=== PATIENT | female | born 1975 | race African-American/Black ===

== ENCOUNTER 2018-11-04 10:03 | Emergency (ER) | payer MEDICAID ==
[~2018-11-04] VITALS: Ht 162.6 cm; Wt 52.6 kg
--- NOTE | 2018-11-04 10:35 | NUR ---
Patient discharged to home in stable conditon. Written and verbal after care instructions given. Patient verbalizes understanding of instructions.
== END 2018-11-04 10:40 | disposition home or self-care (01) ==
LOC: ER 10:03
DX: L03.011 Cellulitis of right finger (principal)
CPT/HCPCS: A4663

== ENCOUNTER 2018-11-08 21:21 | Emergency (ER) | payer MEDICAID ==
[~2018-11-08] VITALS: Ht 162.6 cm; Wt 52.6 kg
[2018-11-08] MEDS ORDERED: SULFAMETHOXAZOLE-TMP DS TABLET (21:33)
[2018-11-08] MEDS ORDERED: CEPHALEXIN 500 MG CAPSULE (21:33)
--- NOTE | 2018-11-08 21:39 | NUR ---
Patient ambulated in ER with stable gait. Patient presents to ER with left index finger swelling. Patient states that she was here last Sunday and notices that the finger is much more swollen compared to the last time she was seen in ER. Patient states she has been taking prescribed ABX.
[2018-11-08] MEDS ORDERED: LIDOCAINE HCL 2% 20 ML VIAL TP ONE (21:45)
[2018-11-08] MEDS ORDERED: SODIUM BICARBONATE 4.2 % (NEUT) 5 ML VIAL TP ONE (21:45)
[2018-11-08] MEDS ORDERED: SULFAMETH/TRIMETH 800/160 MG TABLET PO ONE (23:00)
[2018-11-08] MEDS ORDERED: CEphaleXIN 500 MG CAPSULE ONE (23:00)
[2018-11-08] MEDS ORDERED: SULFAMETH/TRIMETH 800/160 MG TABLET ONE (23:00)
[2018-11-08] MEDS ORDERED: CEphaleXIN 500 MG CAPSULE PO ONE (23:00)
--- NOTE | 2018-11-08 23:28 | NUR ---
Left index finger dressed. Patient discharged to home in stable conditon. Written and verbal after care instructions given. Patient verbalizes understanding of instructions.
[2018-11-08 23:29] VITALS: BP 104/64
== END 2018-11-08 23:30 | disposition home or self-care (01) ==
LOC: ER 21:23
DX: L03.012 Cellulitis of left finger (principal); Z79.2 Long term (current) use of antibiotics; Z79.899 Other long term (current) drug therapy
CPT/HCPCS: 10060; 99283; J3490; A4217; A4663

== ENCOUNTER 2018-11-10 00:17 | Emergency (ER) | payer MEDICAID ==
[~2018-11-10] VITALS: Ht 162.6 cm; Wt 52.6 kg
[~2018-11-10 00:17] MED LIST: CEPHALEXIN 500 MG CAPSULE; SULFAMETHOXAZOLE-TMP DS TABLET
--- NOTE | 2018-11-10 00:40 | NUR ---
Dr. Garg at bedside for MSE.
--- NOTE | 2018-11-10 00:48 | NUR ---
Patient discharged to home in stable conditon. Written and verbal after care instructions given. Patient verbalizes understanding of instructions. Patient ambulated out of ER with steady gait, no acute signs of distress, VSS, all belongings taken.
[2018-11-10 00:49] VITALS: BP 101/66
== END 2018-11-10 00:50 | disposition home or self-care (01) ==
LOC: ER 00:19
DX: Z48.01 Encounter for change or removal of surgical wound dressing (principal); Z79.2 Long term (current) use of antibiotics; Z79.899 Other long term (current) drug therapy
CPT/HCPCS: A4663

== ENCOUNTER 2018-11-10 08:07 | Emergency (ER) | payer MEDICAID ==
[~2018-11-10] VITALS: Ht 165.1 cm; Wt 59.0 kg
--- NOTE | 2018-11-10 08:18 | NUR ---
JAMES ROBERTSON at the bedside for MSE. Dr Graff opened the dressing.
--- NOTE | 2018-11-10 08:30 | NUR ---
Re dressed Lt index finger per MD order.
--- NOTE | 2018-11-10 08:41 | NUR ---
Patient discharged to home in stable conditon. Written and verbal after care instructions given. Patient verbalizes understanding of instructions.
[2018-11-10 08:42] VITALS: BP 103/87
== END 2018-11-10 08:42 | disposition home or self-care (01) ==
LOC: ER 08:07
DX: Z48.01 Encounter for change or removal of surgical wound dressing (principal); Z79.899 Other long term (current) drug therapy; Z79.2 Long term (current) use of antibiotics
CPT/HCPCS: A4663

== ENCOUNTER 2018-11-10 21:17 | Emergency (ER) | payer MEDICAID ==
[~2018-11-10] VITALS: Ht 162.6 cm; Wt 52.6 kg
--- NOTE | 2018-11-10 21:30 | NUR ---
Dr. Tong at bedside for MSE.
[2018-11-10 23:15] VITALS: BP 100/49
== END 2018-11-10 23:15 | disposition home or self-care (01) ==
LOC: ER 21:22
DX: L03.012 Cellulitis of left finger (principal); Z79.2 Long term (current) use of antibiotics; Z79.899 Other long term (current) drug therapy
CPT/HCPCS: A4217; A4663

== ENCOUNTER 2018-11-11 15:21 | Emergency (ER) | payer MEDICAID ==
[~2018-11-11] VITALS: Ht 162.6 cm; Wt 52.6 kg
[2018-11-11] MEDS ORDERED: IPRATROPIUM BROMIDE 0.5 MG/2.5 ML NEBU ONE (15:26)
[2018-11-11] MEDS ORDERED: ALBUTEROL SULFATE 2.5 MG/ 0.5 ML NEBU ONE (15:27)
--- NOTE | 2018-11-11 16:50 | NUR ---
Applied new dressing to lt index finger per pt/MD request.
--- NOTE | 2018-11-11 16:56 | NUR ---
Patient discharged to home in stable conditon. Written and verbal after care instructions given. Patient verbalizes understanding of instructions.
[2018-11-11 16:58] VITALS: BP 137/74
== END 2018-11-11 16:59 | disposition home or self-care (01) ==
LOC: ER 15:21
DX: L03.012 Cellulitis of left finger (principal); Z79.899 Other long term (current) drug therapy
CPT/HCPCS: A4663; J3590

== ENCOUNTER 2018-11-12 04:50 | Emergency (ER) | payer MEDICAID ==
[~2018-11-12] VITALS: Ht 162.6 cm; Wt 52.6 kg
[2018-11-12] MEDS ORDERED: MUPIROCIN 2% OINT 22 GM TUBE ONE (05:10)
--- NOTE | 2018-11-12 05:14 | NUR ---
Pt. ambulated into ED for a wound check of the finger, pt. was treated previously for paronychia in the ER,
[2018-11-12] MEDS ORDERED: MUPIROCIN 2% OINT 22 GM TUBE TP ONE (05:15)
--- NOTE | 2018-11-12 05:25 | NUR ---
Patient discharged to home in stable conditon. Written and verbal after care instructions given. Patient verbalizes understanding of instructions. Pt. d/c per MD orders, d/c papers signed, ID band removed, all belongings w/ pt., ambulated off unit w/ steady gait, NAD,
== END 2018-11-12 05:26 | disposition home or self-care (01) ==
LOC: ER 04:51
DX: Z48.01 Encounter for change or removal of surgical wound dressing (principal); Z79.899 Other long term (current) drug therapy
CPT/HCPCS: A4663

== ENCOUNTER 2018-11-15 19:52 | Emergency (ER) | payer MEDICAID ==
[~2018-11-15] VITALS: Ht 162.6 cm; Wt 52.6 kg
--- NOTE | 2018-11-15 20:30 | NUR ---
Pt. ambulated into ED for paronchyia incision and drainage recheck, no redness/inflammation s/s infection noted,
--- NOTE | 2018-11-15 20:49 | NUR ---
Patient discharged to home in stable conditon. Written and verbal after care instructions given. Patient verbalizes understanding of instructions. Pt. d/c per MD, d/c papers signed, all belongings w/ pt., ID band removed, ambulated out of ED w/ steady gait, NAD
== END 2018-11-15 20:55 | disposition home or self-care (01) ==
LOC: ER 19:53
DX: Z48.01 Encounter for change or removal of surgical wound dressing (principal); Z79.899 Other long term (current) drug therapy
CPT/HCPCS: A4663

== ENCOUNTER 2018-11-27 09:44 | Emergency (ER) | payer MEDICAID ==
[~2018-11-27] VITALS: Ht 162.6 cm; Wt 52.6 kg
--- NOTE | 2018-11-27 09:57 | NUR ---
Dr Graff at the bedside for MSE.
[2018-11-27 09:59] VITALS: BP 116/67
--- NOTE | 2018-11-27 10:06 | NUR ---
Patient discharged to home in stable conditon. Written and verbal after care instructions given. Patient verbalizes understanding of instructions.
== END 2018-11-27 10:10 | disposition home or self-care (01) ==
LOC: ER 09:44
DX: Z48.01 Encounter for change or removal of surgical wound dressing (principal); Z79.899 Other long term (current) drug therapy
CPT/HCPCS: A4663